=== PATIENT | female | born 1990 | race Caucasian/White ===

== ENCOUNTER 2016-11-22 23:29 | Emergency (ER) | payer SELFPAY ==
--- NOTE | 2016-11-23 05:57 | ER ---
ADMIT: 11/22/2016 RM/LOC: ER [facility] MR#: [id number] [address] [facility] [id number] [place], [place] [address] CHOCO BENITEZ [address] [facility] [address] [place] [address] Emergency Room Report SEX: F AGE: 26 : 1990 DATE: 11/22/2016 The patient is a 26-year-old female with known lower leg DVT, off her Eliquis for the past 2 weeks due to noncompliance. Continues to smoke. Denies any recent injury, chest pain, shortness of breath, or hemoptysis. Exam remarkable for nontoxic, afebrile female with swollen right leg and erythema, slightly warm to touch. Venous Doppler shows saphenous system open. However, entire deep venous system from femoral down is occluded. WBC 12.6, CRP 4.4, BNP 33. The patient received Rocephin 1 g IV and Xarelto 15 mg p.o. in department and b.i.d. #40, dispensed 1 from Pyxis. Follow up Dr. Ely this week. Discontinue smoking. Mikcey Fuchs MD/ diony JOB #: [id number] CC: Mickey Fuchs MD, Attending Physician Mitul Ely MD, Family Physician Mitul Ely MD
[2017-01-29] MEDS ORDERED: CELEBREX200 MG PO (19:30)
[2017-01-29] MEDS ORDERED: KLONOPIN DPS1 MG PO (19:30)
[2017-01-29] MEDS ORDERED: BROVANA15 MCG/2 M IH (19:31)
[2017-01-29] MEDS ORDERED: TYLENOL EXTRA500 M1 PO (19:31)
[2017-01-29] MEDS ORDERED: PEPCID DPS20 MG PO (19:31)
[2017-01-29] MEDS ORDERED: DUONEB DPS3 ML IH ×2 (19:31→19:32)
[2017-01-29] MEDS ORDERED: PULMICORT0.5 MG/2 M IH (19:32)
[2017-01-29] MEDS ORDERED: NICODERM CQ1 EAC2 TP ×2 (19:32→19:40)
[2017-01-29] MEDS ORDERED: [UNRECOGNIZED DRUG - OTHER] IV (19:34)
[2017-01-29] MEDS ORDERED: HEPARIN5000 UNITS IV (19:34)
[2017-01-29] MEDS ORDERED: [UNRECOGNIZED DRUG - CODE] IV (19:34)
[2017-01-29] MEDS ORDERED: ZOSYN 3.373.375 GM/5 IV ×2 (19:35→19:57)
[2017-01-29] MEDS ORDERED: VANCOMYCIN1.25 GM/25 IV (19:35)
[2017-01-29] MEDS ORDERED: COLACE-DPS100 MG PO (19:36)
[2017-01-29] MEDS ORDERED: TYLENOL DPS325 MG PO (19:36)
[2017-01-29] MEDS ORDERED: ATIVAN-DPS1 MG PO ×2 (19:36→19:55)
[2017-01-29] MEDS ORDERED: BENADRYL-DPS25 MG PO (19:36)
[2017-01-29] MEDS ORDERED: MAALOX DPS30 ML PO (19:36)
[2017-01-29] MEDS ORDERED: TYLENOL-DPS650 MG PR (19:37)
[2017-01-29] MEDS ORDERED: TYLENOL DP650 MG/20. PO (19:37)
[2017-01-29] MEDS ORDERED: NITROSTAT0.4 MG SL (19:37)
[2017-01-29] MEDS ORDERED: BENADRYL-DPS50 MG/ML IV (19:38)
[2017-01-29] MEDS ORDERED: ATIVAN DPS2 MG/ML IV ×2 (19:38→19:55)
[2017-01-29] MEDS ORDERED: DILAUDID P6 MG/30 ML IV (19:39)
[2017-01-29] MEDS ORDERED: DILAUDID-DPS2 MG/ML IV (19:39)
[2017-01-29] MEDS ORDERED: ZOFRAN2 MG/ML IV (19:40)
[2017-01-29] MEDS ORDERED: SODIUM CHLORID250 ML IV ×2 (19:40→19:54)
[2017-01-29] MEDS ORDERED: NICODERM CQ1 EAC1 TP (19:41)
[2017-01-29] MEDS ORDERED: VANCOMYCIN1 GM/2501 IV (19:55)
[2017-01-29] MEDS ORDERED: MORPHINE P30 MG/30 M IV (19:56)
[2017-01-29] MEDS ORDERED: REGLAN INJ10 MG/2 ML IV (19:57)
[2017-01-29] MEDS ORDERED: MORPHINE2 MG/ML (19:58)
[2017-01-29] MEDS ORDERED: MORPHINE (19:58)
[2017-01-29] MEDS ORDERED: ATIVAN DPS2 MG/ML (19:59)
== END 2016-11-23 01:30 | disposition home or self-care (01) ==
LOC: ER 23:29
DX: I80.9 Phlebitis and thrombophlebitis of unspecified site (principal); L03.115 Cellulitis of right lower limb

== ENCOUNTER 2017-01-26 13:40 | Inpatient (IN) | payer SELFPAY ==
[~2017-01-26] VITALS: Ht 175.3 cm; Wt 114.0 kg
--- NOTE | ~2017-01-26 | OR ---
ADMIT: 01/26/2017 RM/LOC: 314 [facility] MR#: [id number] [address] [place], [place] [address] CHOCO BENITEZ [place] [address] [address] Operative/Delivery Room Report SEX: F AGE: 26 : 1990 SURGERY DATE: 01/28/2017 SURGEON: Craig Wong MD PROCEDURE: Thoracentesis of the left chest. INDICATION: Left-sided empyema versus bleed, although hemoglobin is still 17 with elevated white count of 34,000. DESCRIPTION OF PROCEDURE: After signed consent was placed in the chart, describing the risks, benefits as well as complications of bleeding and pneumothorax, the patient was sitting in upright position. After this, we were able to place a sterile barrier after we had marked an area of concern with the ultrasound machine, where we obviously could see the diaphragm fairly easily and marked without any difficulty. The patient has already been receiving a FLANGING ROLL OPERATOR. A sterile needle was used, Xylocaine approximately 10 mL of 2% to obtain adequate anesthesia at the tenth intercostal space posteriorly on the left area that was marked by ultrasound machine, we were able to place a sterile barrier over this. The Wearable Securityns cleanser was used and then able to place a needle catheter, vacuum extraction technique catheter of the Safe-T- Centesis, we were able to enter the left chest posteriorly obtaining a yellow- clay appearing fluid. The exudate, to this examiner, did have some abnormal smell on examination, removed approximately 1000 mL of this, material did not appear to be bloody. She was discharged in satisfactory condition. Chest x- ray postoperatively demonstrated no pneumothorax and some minimal residual fluid and some minimal change in the chest x-ray, however suggestive that this was indeed an empyema. I had discussion about this with the family given the fact that we had to stop the heparin 1 hour prior to the surgery in order to do this thoracentesis. We then resumed the heparin postoperatively. She tolerated the procedure quite well. Minimal amount of discomfort was noted. We did note there was significant amount of fluid left in the chest because of the discomfort she was having. Craig Wong MD/ diony JOB #: [id number] CC: Maame Sullivan, Attending Physician Maame Sullivan, Family Physician
--- NOTE | ~2017-01-26 | ECH ---
Transthoracic Echocardiography Report (TTE) Demographics Patient Name CHOCO BENITEZ Date of Study 01/27/2017 Patient Number [id number] Visit Number [id number] Date of 1990 Room Number 405 Accession Number [id number] Gender Female Age 26 year(s) Referring Laurie Galan Office Manager Receptionist Lauryn Barros [facility] Physician Physician Interpreting Rosaline Ramsay [employer] Manager Physician MD Supervising Ordering Physician Laurie Galan MD/MLP Nurse Stress Crate Maker Conclusions Summary Technically fair exam. The estimated left ventricular ejection fraction is 55-60%. Mild concentric left ventricular hypertrophy. Right ventricle not well visualized but appears normal size. Trivial tricuspid regurgitation by color Doppler. Inadequate TR jet to accurately estimate the pulmonary arterial systolic pressure. Possible pleural effusion. Procedure Type of Study TTE procedure:Echo Complete SF. Procedure Date Date: 01/27/2017 Start: 09:48 AM Technical Quality: Fair due to body habitus. Indications:Pulmonary embolus. Appropriate Use Criteria: 9 Height: 69 inches Weight: 244 pounds BSA: 2.25 m Rhythm: Sinus tachycardia HR: 127 bpm BP: 120/90 mmHg M-Mode/2D Measurements LV Diastolic Dimension: 4.38 cm LV Systolic Dimension: 3.73 cm LV Septum Diastolic: 1 cm LV PW Diastolic: 1.03 cm AO Root Dimension: 2.64 cm Cardiac Output: 3.55 l/min LA Dimension: 3.23 cm Cardiac Index: 1.58 l/min*m RV Diastolic Dimension: 2.17 cm LA volume index: 10 ml/m LVOT: 1.87 cm LVOT VTI: 10.18 cm LV Stroke volume: 27.94 ml LV Stroke volume index: 12.42 ml/m Doppler Measurements AV Peak Velocity: 1.1 m/s MV Peak E-Wave: 0.86 m/s AV Peak Gradient: 4.84 mmHg MV Peak A-Wave: 0.88 m/s AV Mean Gradient: 2.89 mmHg MV E/A Ratio: 0.97 LVOT Peak Velocity: 0.85 m/s AV Area (Continuity):1.65 cm TR Velocity:1.04 m/s PV Peak Velocity: 0.98 m/s TR Gradient:4.3 mmHg PV Peak Gradient: 3.82 mmHg Estimated RAP:5 mmHg Estimated PASP: 9.3 mmHg Estimated RVSP: 9 mmHg Findings Left Ventricle The left ventricle is normal in size . Mild concentric left ventricular hypertrophy. Diastolic function indeterminate. Right Ventricle Right ventricle not well visualized but appears normal size. Left Atrium Normal left atrial size. There is no evidence of patent foramen ovale or atrial septal defect by color Doppler. Right Atrium Right atrium not well visualized but appears normal size. Mitral Valve Normal mitral valve structure and function. Aortic Valve Normal aortic valve structure and function. Tricuspid Valve Normal tricuspid valve structure and function. Trivial tricuspid regurgitation by color Doppler. Estimated pulmonary pressures normal range. Pulmonic Valve The pulmonic valve is not well visualized. Pericardial Effusion Epicardial fat pad noted. Miscellaneous Visualized portions of the aortic root and ascending aorta appear normal in size. Pleural Effusion Possible pleural effusion. Contractility Score LV regional wall motion:(0-Non visualized 1-Normal 2-Hypokinesis 3-Akinesis 4-Dyskinesis 5-Aneurysm) Signature
--- NOTE | ~2017-01-26 | CO ---
ADMIT: 01/26/2017 RM/LOC: 314 [facility] MR#: [id number] 26[address] [facility] [address] [place], [place] [address] CHOCO BENITEZ [address] [address] [facility] [address] [place] [address] Consultation SEX: F AGE: 26 : 1990 DATE OF CONSULTATION: 01/27/2017 ATTENDING PHYSICIAN: Maame Sullivan CONSULTING PHYSICIAN: Craig Wong MD REASON FOR CONSULTATION: Evaluation regarding this lady is submassive PE now with severe chest pain, aspiration event, smoking history, and compliance issues with taking her Xarelto. HISTORY OF PRESENT ILLNESS: This is a 26-year-old, smoking lady up until she came into the hospital, now has had what she has been describing as events associated with pulmonary emboli, which actually DVT originally diagnosed in October 23, some other physician in [place] put her on Xarelto. She was treated with the medication and supposed to take it every day, but she apparently quit it after about a month or so and legs became swollen. Mother took her to the emergency room because she had no insurance issues and an ultrasound did show the DVT extended higher in the legs and told to stay on Xarelto. She has no followup appointments. Apparently, has seen a physician for a couple months now, and she has been taking intermittently has been the Xarelto. Now, says that she has been coughing up fair amount of blood here, had some nausea and vomiting with the episode today regarding the severe pain she has been having, initially started on morphine, now on a Dilaudid drip with ETHNOGRAPHIC MATERIALS CONSERVATOR and is in significant amount of pain now also. An x-ray is dramatically changed, however, now demonstrating initially fluffy infiltrate in the left base, now has a complete white-out of the left lung and the question it is just atelectasis due to an endobronchial lesion such as an aspiration that was normal 2 days before. I doubt this will be a tumor given the rapidity of this development versus pulmonary infarct, which I doubt although she has quite a significant amount of pain and the white count is elevated now from 5000 to 36,000 in the past 12 hours. The patient is now afebrile. Blood gases show a pH of 7.40, pCO2 of 41, PO2 of 67 on room air, so she is not hypoxic. Echo demonstrates a normal EF, although insufficient jet to determine the pulmonary artery pressures, does not appear to have any D- shaped deformity of the right ventricle. The music assistant read this, Dr. Waggoner. Her hemoglobin was 17 and hematocrit 49. She was admitted with a hemoglobin of 16 and her platelets of 361. Urinalysis was negative. Her sodium 131, potassium 4.1, chloride is 97, bicarb 24, BUN 5, and creatinine 0.7. She has a family history of PEs in aunt, who has had these in the past. SOCIAL HISTORY: Otherwise shows she smokes a pack a day, has done so for many years. She has a mother, who has had a myocardial infarction. She has no history of any other drug abuse that we know of. She has an IUD in place at this time. PAST MEDICAL HISTORY: Other past history includes her bipolar, anxiety, depression as well as DVT and obesity. Her boyfriend says that he does not notice any stopping breathing at night or sleep apnea or snoring or such, but she has been overweight for quite a while. She has had 1 in November ADMIT: 01/26/2017 RM/LOC: 314 [facility] MR#: [id number] [address] [address] CHOCO BENITEZ [facility] [place] [address] Consultation SEX: F AGE: 26 : [birth year]. MEDICATIONS: Medications at home: 1. Hydromorphone. 2. Celebrex. 3. Klonopin. 4. Pepcid. 5. Ativan. 6. Now is on the heparin drip. 7. Zofran. 8. Nitroglycerin. 9. Colace. 10.Some Tylenol p.r.n. REVIEW OF SYSTEMS: She describes just vomiting episodes that she was not really nauseated. RESPIRATORY: She is coughing up blood and some yellow-type of material. Denies any nasal congestion. Says she really has not had a cold, but she has not been feeling well over the past few months. Her legs have been quite swollen and tender. She denies any weight gain or loss. CARDIAC: Denies any history of myocardial infarctions or heart issues, but does have a severe left chest wall pain, not pleuritic in nature. Seems to be controlled now better with the Dilaudid she has been having. ABDOMEN: She denies any pain now, but has just nausea and vomiting episodes. GENITOURINARY: Negative. ENDOCRINE: Negative. Her beta-HCG on admission was negative for , and she does have a DVT on the lower extremities, and apparently this extended the previous 2 Doppler of the lower extremities, which will be repeated here tonight. PHYSICAL EXAMINATION: VITAL SIGNS: Blood pressure now is 143/78, respirations 36, pulse 130, her weight is 113 kilos, and temp 98.7. HEENT: No cervical adenopathy. The eyes are round and reactive. Ear, tympanic membranes intact. Posterior appears to be adequate. No yeast in her mouth. CHEST: Diminished breath sounds on the left side. The right side essentially is clear. No crackles. No wheezes. HEART: Regular rhythm. I do not hear a gallop. No murmurs. ABDOMEN: Obese, soft, and nontender. No organomegaly. EXTREMITIES: Trace of edema. No clubbing or cyanosis. deferred. DIAGNOSTIC DATA: The CT scan is reviewed and does show to this examiner initially a fluffy infiltrate in the left base, does not appear to be an infarct, appears to be more of issue of an infiltrative process in the left. I do not see any associated effusion; however, the chest x-ray is dramatically changed, now demonstrating either complete consolidation of the left lower lobe and left middle and lower lung zone versus effusion versus . ADMIT: 01/26/2017 RM/LOC: 314 [facility] MR#: [id number] [address] [facility] [address] [place], [place] [address] CHOCO BENITEZ [address] [address] Consultation SEX: F AGE: 26 : 1990 IMPRESSION: 1. Submassive pulmonary embolism with previous deep venous thrombosis in November 2016. 2. Echo showing no obvious RV strain at this time. 3. Aspiration event with probable pneumonia. 4. Chronic obstructive pulmonary disease related to her smoking. 5. Obesity. 6. Family history of pulmonary embolisms rule out some familial issue such as the factor V Leiden, antithrombin III deficiency, prothrombin gene mutation nor other protein C or S deficiencies. These have not been looked at. She was supposed to have these done, but has not been performed. Other impression includes are noncompliance issues with Xarelto. RECOMMENDATIONS: Proceed to get a CTA, do Doppler of the lower extremities. She does need to have a chest tube placed or needs bronchoscopy, start some breathing treatments. Given the elevated white count, consider the use of vancomycin and Zosyn at this time, checking blood urine and sputum cultures so far. DuoNeb q.4 h. Pulmicort b.i.d. O2 protocol. No smoking literature. I would like to do the nasal pathogens for PCR and will be monitoring her in the intensive care unit with cardiac monitoring, oximetry, and pain control. I appreciate the opportunity to evaluate and participate in her care. Craig Wong MD/ diony JOB #: [id number] CC: Maame Sullivan, Attending Physician Maame Sullivan, Family Physician Maame Sullivan MD
[2017-01-29] MEDS ORDERED: CELEBREX200 MG PO (19:30)
[2017-01-29] MEDS ORDERED: KLONOPIN DPS1 MG PO (19:30)
[2017-01-29] MEDS ORDERED: TYLENOL EXTRA500 M1 PO (19:31)
[2017-01-29] MEDS ORDERED: PEPCID DPS20 MG PO (19:31)
[2017-01-29] MEDS ORDERED: BROVANA15 MCG/2 M IH (19:31)
[2017-01-29] MEDS ORDERED: DUONEB DPS3 ML IH ×2 (19:31→19:32)
[2017-01-29] MEDS ORDERED: PULMICORT0.5 MG/2 M IH (19:32)
[2017-01-29] MEDS ORDERED: NICODERM CQ1 EAC2 TP ×2 (19:32→19:40)
[2017-01-29] MEDS ORDERED: [UNRECOGNIZED DRUG - OTHER] IV (19:34)
[2017-01-29] MEDS ORDERED: HEPARIN5000 UNITS IV (19:34)
[2017-01-29] MEDS ORDERED: [UNRECOGNIZED DRUG - CODE] IV (19:34)
[2017-01-29] MEDS ORDERED: VANCOMYCIN1.25 GM/25 IV (19:35)
[2017-01-29] MEDS ORDERED: ZOSYN 3.373.375 GM/5 IV ×2 (19:35→19:57)
[2017-01-29] MEDS ORDERED: TYLENOL DPS325 MG PO (19:36)
[2017-01-29] MEDS ORDERED: COLACE-DPS100 MG PO (19:36)
[2017-01-29] MEDS ORDERED: MAALOX DPS30 ML PO (19:36)
[2017-01-29] MEDS ORDERED: ATIVAN-DPS1 MG PO ×2 (19:36→19:55)
[2017-01-29] MEDS ORDERED: BENADRYL-DPS25 MG PO (19:36)
[2017-01-29] MEDS ORDERED: TYLENOL-DPS650 MG PR (19:37)
[2017-01-29] MEDS ORDERED: TYLENOL DP650 MG/20. PO (19:37)
[2017-01-29] MEDS ORDERED: NITROSTAT0.4 MG SL (19:37)
[2017-01-29] MEDS ORDERED: ATIVAN DPS2 MG/ML IV ×2 (19:38→19:55)
[2017-01-29] MEDS ORDERED: BENADRYL-DPS50 MG/ML IV (19:38)
[2017-01-29] MEDS ORDERED: DILAUDID P6 MG/30 ML IV (19:39)
[2017-01-29] MEDS ORDERED: DILAUDID-DPS2 MG/ML IV (19:39)
[2017-01-29] MEDS ORDERED: SODIUM CHLORID250 ML IV ×2 (19:40→19:54)
[2017-01-29] MEDS ORDERED: ZOFRAN2 MG/ML IV (19:40)
[2017-01-29] MEDS ORDERED: NICODERM CQ1 EAC1 TP (19:41)
[2017-01-29] MEDS ORDERED: VANCOMYCIN1 GM/2501 IV (19:55)
[2017-01-29] MEDS ORDERED: MORPHINE P30 MG/30 M IV (19:56)
[2017-01-29] MEDS ORDERED: REGLAN INJ10 MG/2 ML IV (19:57)
[2017-01-29] MEDS ORDERED: MORPHINE2 MG/ML (19:58)
[2017-01-29] MEDS ORDERED: MORPHINE (19:58)
[2017-01-29] MEDS ORDERED: ATIVAN DPS2 MG/ML (19:59)
--- NOTE | 2017-01-31 08:48 | ER ---
ADMIT: 01/26/2017 RM/LOC: 405 [facility] MR#: [id number] [address] [facility] [address] [place], [place] [address] CHOCO BENITEZ [address] [facility] [address] [place] [address] Emergency Room Report SEX: F AGE: 26 : 1990 DATE: 01/26/2017 TIME: 1340 hours. Please refer to my T-sheet for complete H and P. HISTORY OF PRESENT ILLNESS: Briefly, the patient is a 26-year-old who comes in with pleuritic chest pain on the left side, coughing up some blood-tinged phlegm. It has been going on about 3 to 4 days. She also mentions that she had a DVT in her right leg about a month ago. She actually stopped Xarelto because she could not afford it. She still smokes a pack a day, and she is on a Mirena for control. PHYSICAL EXAMINATION: VITAL SIGNS: Blood pressure 141/93, pulse 103, respirations 18, temp 98.4, and sat 96%. GENERAL: In no acute distress. HEENT: Grossly normal. LUNGS: Slightly coarse on the left. Moving adequate air. HEART: Regular. ABDOMEN: Soft. EXTREMITIES: Her right leg may be slightly more swollen than the left, but very minimal. She says it is much improved. She is neurovascularly intact distally. EMERGENCY DEPARTMENT COURSE: We did a , which was negative. After that, we did a CT scan of her chest, came back with bilateral PEs, left greater than the right with a pulmonary infarct on the left. CBC normal except white count 16.6. Chemistries normal except potassium 3.4, BUN 4, total bilirubin is 0.4, AST 70, and ALT 112. UA showed 4 urobilinogen, and 61 red cells. EKG was sinus rhythm, rate 97, no changes. She had an IV sustained. We titrated morphine. We started her on the heparin per PE protocol. I talked to Laurie, who will admit to the hospital. ASSESSMENT: 1. Bilateral pulmonary emboli with pulmonary infarct on the left. 2. Nicotine abuse. 3. Noncompliant. PLAN: Admit to the hospital under the care of Laurie. Mal Sandoval MD/ diony JOB #: [id number] CC: Maame Sullivan MD, Attending Physician Maame Sullivan MD, Family Physician
--- NOTE | 2017-02-01 07:48 | HP ---
ADMIT: 01/26/2017 RM/LOC: 405 [facility] MR#: [id number] [address] [facility] [address] [place], [place] [address] CHOCO BENITEZ [place] [address] [facility] [address] [place] [address] History and Physical SEX: F AGE: 26 : 1990 DATE OF SERVICE: CHIEF COMPLAINT: Chest pain and shortness of breath. HISTORY OF PRESENT ILLNESS: This is a 26-year-old, who was diagnosed with a right leg DVT in October of 2016. She saw a physician in [place] and was started on Xarelto and was treated as an outpatient. Apparently, she did not take the medicine every day. She said after about a month or so, her leg was still swollen. Her mom took her to emergency room because she had no insurance. She was told that the ultrasound showed the DVT had extended higher in leg and stay on the Xarelto. She kept no followup appointments and has not been seen by a physician for about two months. In any case, she had one month of samples and one month of medications, so only had a total of 60 days of Xarelto. She was taking intermittently and has been out for about a month she estimates. She said her leg got less swollen over time, but in the last three or four days, she started to get some chest pain. She came to the ER in [place] today because of the severity of her pain. She is a smoker. She is not . There is a family history of DVT and stroke in aunt. In the ER today, CTA shows bilateral pulmonary emboli. She was started on heparin protocol and admitted to PCU. PAST MEDICAL HISTORY: Significant for anxiety and depression as well as the recent DVT. MEDICATIONS: She had been on Xarelto as stated above, but she does not recall the dose or how frequently she was taking it. She also has historically been on Ativan, Lexapro, and Abilify. FAMILY HISTORY: There is an aunt with stroke and what sounds like, DVT by their description. SOCIAL HISTORY: She is single. Does not work, has no insurance. She lives in [place]. She is a smoker. She reportedly has her GED. REVIEW OF SYSTEMS: GENERAL: Significant for overall anxiety. She denies fevers. ENT: Benign. CARDIOPULMONARY: Positive for chest pain, especially in the left lower side of her chest. She has been putting on topical treatments like Icy Hot and using cold packs to help that. She said it hurts worse to take a deep breath. She has no cough. No hemoptysis. GI: She has nauseated today in the last couple of days. She has vomited a couple of times. Denies diarrhea. Denies constipation. No bloody stools. No hematemesis. : Benign. No hematuria. MUSCULOSKELETAL: Positive for the pain in her chest and otherwise benign. ADMIT: 01/26/2017 RM/LOC: 405 [facility] MR#: [id number] [address] [address] CHOCO BENITEZ [facility] [place] [address] History and Physical SEX: F AGE: 26 : 1990 NEUROPSYCHIATRIC: She complains of being very anxious about the current diagnosis and overall had troubles with anxiety on a routine basis, but has been out of her Ativan for a few months. PHYSICAL EXAMINATION: VITAL SIGNS: Showing blood pressure 152/96, oxygenation 98% on room air, and heart rate is in the 120s to 130s. She is afebrile. ENT: Mucous membranes are moist. She has no petechiae. Sclerae are clear. Tongue extends in the midline. She has a tattoo behind her right ear. No evidence of any skin infection. NECK: Supple. There is no jugular venous distention. LUNGS: With breath sounds throughout. She has some diminished sounds on the left, but I can still hear some air movement there. There are no rhonchi and no wheeze. HEART: Tachycardic. There is no obvious murmur. She keeps moving around in the bed and difficult to get a good exam. ABDOMEN: Belly is obese. There is no pain in the abdomen. No obvious hepatosplenomegaly. EXTREMITIES: With no edema. Specifically, her right leg and right calf have no edema or pain. Capillary refill is normal throughout. LABORATORY AND X-RAY DATA: Her electrolytes show sodium of 137, potassium 3.4, chloride 101, BUN 30, creatinine is 0.8 with BUN of 3, and bilirubin mildly elevated at 0.4. The rest of the liver function tests show AST 70 and ALT is 112. Her white count is 16.6 with a hemoglobin of 16, hematocrit 45.7, and platelet count 327. Urinalysis shows blood with 61 red blood cells per high-power field and also urobilinogen. CT scan today reveals "bilateral pulmonary emboli with left lower lobe infarct." Heart size was noted to be normal with no pericardial effusion. She also had a venous ultrasound on November 22, 2016, here in our emergency room which revealed "occlusive clot within the femoral vein extending to the posterior tibial vein." ASSESSMENT: 1. Bilateral pulmonary emboli with left pulmonary infarct. 2. Chronic deep venous thrombosis. 3. Anxiety. PLAN: We will give her heparin protocol and that has already been started in the emergency room. At this point, she is anxious, in pain, nauseated, so I ADMIT: 01/26/2017 RM/LOC: 405 [facility] MR#: [id number] [address] [facility] [address] [facility] [place], [place] [address] CHOCO BENITEZ [facility] [address] History and Physical SEX: F AGE: 26 : 1990 will treat those acute symptoms. I talked to her briefly about the fact that she is going to need long-term anticoagulation. We will ask for Social Work to see her regarding financial assistance. She also should quit smoking. She said she is aware of that. I will try to get records from [place] to see if she had any hypercoagulability lab work drawn prior to starting on her Xarelto. Also, at this point, plan on keeping on anticoagulation for 6 months and refer to Hematology. Echocardiogram is pending and depending on the findings, I will consider consult with Cardiology as well. Maame Sullivan MD/ diony JOB #: [id number] CC: Maame Sullivan, Attending Physician Maame Sullivan, Family Physician
--- NOTE | 2017-02-03 16:53 | DS ---
ADMIT: 01/26/2017 RM/LOC: 314 [facility] MR#: [id number] [address] [facility] [address] [place], [place] [address] CHOCO BENITEZ [address] [facility] [address] [place] [address] Discharge Summary SEX: F AGE: 26 : 1990 ADMISSION DATE: 01/26/2017 DISCHARGE DATE: 01/28/2017 HISTORY OF PRESENT ILLNESS: This is a 26-year-old smoking lady, who appears to have pulmonary emboli with rather severe pain in her chest and complaining of marked dyspnea and actually had DVT originally diagnosed on October 23 in [place]. Pulmonary physician at that time put her on Xarelto and had her take this. She did not take it according to the directions and noted that a month after this, her legs became swollen and her mother took her to the emergency room there on December 23, and at that time, the legs showed further clot. Ultrasound was performed and put her back on Xarelto. She now appears here in the emergency room with submassive PE localized more in the left lung than right and CT demonstrated infiltrate in the left base on initial exam that was performed on the January 27. Today's date is January 28. She has undergone a CT scan subsequently last night, which demonstrated further massive left-sided effusion. Thoracentesis was performed this morning. After stopping the use of heparin for about an hour we noted what looked like an orangish-yellow material that was exudative quality and had a pH was 7.12. It looked exudative. It appeared there were many white cells, and there was no evidence of bacteria on this but obviously. Otherwise, she has bipolar history with a lot of depression, having trouble paying for the Xarelto is her major problem, and she needs to be evaluated for possible decortication, left chest possibility of a pulmonary infarct may be noted but I think appears to be more a process of submassive pulmonary emboli. Echo showed no obvious ventricular strain, aspiration . She had been nauseated and vomiting several times. There is a family history of pulmonary emboli and multiple issues. I plan to send her to [facility] for further evaluation and possible decortication. Craig Wong MD/ diony JOB #: [id number] CC: Maame Sullivan MD, Attending Physician Maame Sullivan MD, Family Physician
--- NOTE | 2017-02-12 11:47 | CO ---
ADMIT: 01/26/2017 RM/LOC: 314 [facility] MR#: [id number] [address] [place], [place] [address] CHOCO BENITEZ [address] [facility] [address] [place] [address] Consultation SEX: F AGE: 26 : 1990 DATE OF CONSULTATION: 01/28/2017 ATTENDING PHYSICIAN: Maame Sullivan CONSULTING PHYSICIAN: Diomedes Andrew MD REASON FOR CONSULTATION: Left-sided pleural effusion. HISTORY OF PRESENT ILLNESS: Choco is a very pleasant 26-year-old female who apparently was diagnosed with a right femoral DVT back in October of this year down in [place]. At that time, this was done in the Emergency Department, and she was started on Xarelto. She only took Xarelto intermittently, however, and did not follow up very well. There is a history of some noncompliance. As a result, the patient developed sudden onset of chest pain, shortness of breath, and hemoptysis several days ago. She was then again seen in the Emergency Department down in [place], where they worked her up for bilateral PEs. She is now transferred to our hospital for intensive care management and has been put on a heparin drip. Upon admission, there was a question of infarct on the left side of lung. Now, repeat CTA shows large left-sided pleural effusion. The patient underwent thoracentesis performed by Interventional Radiology, and they were able to get about 1 L to 1-1/2 L fluid off. The procedure was terminated apparently because the patient developed sudden sharp chest pain. We now have been consulted for management of the pleural effusion. PAST MEDICAL HISTORY: Significant for anxiety and depression. ALLERGIES: NO KNOWN DRUG ALLERGIES. MEDICATIONS: Documented in the chart. FAMILY HISTORY: Mother had an OH. SOCIAL HISTORY: The patient is a tobacco user. She denies any alcohol or illicit drug use. REVIEW OF SYSTEMS: CONSTITUTIONAL: The patient denies any fever, chills, or night sweats. The rest of her comprehensive 10-point review of systems was performed, and all other systems are negative. PHYSICAL EXAMINATION: GENERAL: The patient is in no acute distress, although, she is ill appearing. HEENT: Head is normocephalic and atraumatic. EOMS are intact. Conjunctivae are free of icterus, erythema, or pallor. Pinnae are free of deformities. Nose in midline. No tracheal deviation. NECK: Supple. SKIN: Negative for jaundice, clubbing, edema, pallor, or cyanosis. LUNGS: Diminished breath sounds on the left side. HEART: Distal pulses intact. Regular rate and rhythm. ADMIT: 01/26/2017 RM/LOC: 314 [facility] MR#: [id number] [address] [address] CHOCO BENITEZ [facility] [place] [address] Consultation SEX: F AGE: 26 : 1990 ABDOMEN: Soft, nondistended, and nontender. NEUROLOGIC: Grossly intact. LABORATORY DATA: White blood cell count is 34.3. ASSESSMENT: Left-sided pleural effusion versus left lung infarct. PLAN: I will update Dr. Andrew on this case immediately. She is currently on a heparin drip for her DVT and PE. The very least we can do is place a chest tube. However, cortication could be necessary, and we can place one at that time as well. I discussed this plan with the patient and her family who was present during my whole assessment. They are in agreement of this plan, had all their questions answered, and would like to proceed. Thanks for the consultation on this patient. ESDRAS Almeida / Diomedes Andrew MD / diony JOB #: [id number] CC: Maame Sullivan, Attending Physician Maame Sullivan, Family Physician
--- NOTE | 2017-02-12 11:47 | CO ---
ADMIT: 01/26/2017 RM/LOC: 314 [facility] MR#: [id number] [address] [facility] [address] [place], [place] [address] CHOCO BENITEZ [address] [address] Consultation SEX: F AGE: 26 : 1990 DATE OF CONSULTATION: 01/28/2017 ATTENDING PHYSICIAN: Maame Sullivan MD CONSULTING PHYSICIAN: Diomedes Andrew MD REASON FOR CONSULTATION: Large left pleural effusion with pulmonary emboli, possible infarct versus infection. HISTORY OF PRESENT ILLNESS: This patient is a 26-year-old female, who came in to the hospital with significant pulmonary emboli. Evidently had a DVT that was diagnosed before, been put on Xarelto, but had not been taking it. Ultimately, at this point, been consulted. She has been seen, I believe had echo, had 2 CTAs of the chest. Doppler of the lower extremities has definite blood clot. She has a large pulmonary embolism and in 24 hours has developed significant effusion around that left side with near collapse of the entire left lung, worrisome for possible left lower lobe pulmonary infarct. She had a thoracentesis done here that took 1000 off and did not have any known bacteria. Awaiting cultures on it. Currently, she is more comfortable, still has a fair amount of pain, has significant white count. SOCIAL HISTORY: She smokes a pack a day and has for many years. PAST MEDICAL HISTORY: Significant for the DVT, anxiety, and depression. MEDICATIONS: For current medications, please see chart. It sounds like maybe some family members with possible DVT, stroke in the past, and DE. REVIEW OF SYSTEMS: Currently when I see her, her chest pain and shortness of breath are improved. PHYSICAL EXAMINATION: GENERAL: She is alert. She is oriented, afebrile. VITAL SIGNS: Currently stable. NECK: No JVD. LUNGS: Some decreased breath sounds on the left compared to the right. Better breath sounds on the right. HEART: Tachy without significant obvious murmur. ABDOMEN: Benign. EXTREMITIES: No significant edema in her extremities at this point. ADMIT: 01/26/2017 RM/LOC: 314 [facility] MR#: [id number] [address] [place], [place] [address] CHOCO BENITEZ [place] [address] [address] Consultation SEX: F AGE: 26 : 1990 ASSESSMENT AND PLAN: I reviewed the scans with the radiologist. I am worried that this is a possibility of an infarct as well in this left lower lobe. It could be infiltrate, but she developed a large acute pleural effusion in 24 hours that at this time has had thoracentesis of 1000 out. She may end up needing a chest tube, but my question is, would this young 26-year-old benefit from a possible thrombolysis of this large clot to improve any possible lung function in the lower lobe or throughout her overall pulmonary status. That is not anything we can do here. If she did have a true empyema which does not appear to be at this time. We could go in and drain that, but if she has an infarcted lower lobe and we find that at that time, would need a resection and I think she would overall be better dealt with at [facility] for the above reasons. Will visit with Primary and Pulmonary. Diomedes Andrew MD/ diony JOB #: [id number] CC: Maame Sullivan MD, Attending Physician Maame Sullivan MD, Family Physician
== END 2017-01-28 17:25 | disposition short-term general hospital (02) | DRG 175 ==
LOC: ER 13:40 → 4PCU 15:32 → 3ICU 01-27 22:21
PROVIDERS: ADMIT Family Medicine
PROC: 0W9B3ZX Drainage of Left Pleural Cavity, Percutaneous Approach, Diagnostic (ICD-10-PCS; principal; 2017-01-28)
DX: I26.99 Other pulmonary embolism without acute cor pulmonale (principal); J69.0 Pneumonitis due to inhalation of food and vomit; I82.411 Acute embolism and thrombosis of right femoral vein; I82.441 Acute embolism and thrombosis of right tibial vein; J91.8 Pleural effusion in other conditions classified elsewhere; R09.02 Hypoxemia; F31.9 Bipolar disorder, unspecified; F17.210 Nicotine dependence, cigarettes, uncomplicated; T45.516A Underdosing of anticoagulants, initial encounter; E66.9 Obesity, unspecified; Z68.36 Body mass index [BMI] 36.0-36.9, adult; J44.9 Chronic obstructive pulmonary disease, unspecified; F41.9 Anxiety disorder, unspecified; Z91.120 Patient's intentional underdosing of medication regimen due to financial hardship; Z86.718 Personal history of other venous thrombosis and embolism; Z82.49 Family history of ischemic heart disease and other diseases of the circulatory system